=== PATIENT | female | born 1990 | race African-American/Black ===

== ENCOUNTER 2021-03-08 14:33 | Emergency (ER) | payer OTHER ==
[~2021-03-08] VITALS: Ht 162.6 cm; Wt 65.0 kg
[2021-03-08 16:33] VITALS: BP 114/74
--- NOTE | 2021-03-08 17:07 | RAD ---
THREE VIEWS RIGHT FINGER Clinical History: Reason: pink finger flexion trigger finger? Technique: AP view of the hand, as well as lateral and oblique collimated views of the little finger were obtained. Comparison: None. Findings: There is no acute fracture or dislocation. The mineralization is normal. The joint spaces are maintai wendy. There is no radiopaque foreign body. The soft tissues are normal. IMPRESSION: No acute fracture. Electronically signed by: Justen Clemente MD (03/08/2021 5:05 PM) [facility]
--- NOTE | 2021-03-08 17:13 | PHYS DOC ---
Past Medical History Past Surgical History: No Surgical History General Adult EDM: Chief Complaint: FINGER INJURY HPI: HPI: Patient is a 30 year old female who presents to the ED today complaining of her right little finger getting stuck in flexed position at the DIP joint intermittently. Patient states this has been going on for "a while". Patient states she does not know if she injured it or not. Denies any pain. Patient denies any pain. Review of Systems: Review of Systems: Constitutional: Denies fever or chills. [][] Musculoskeletal: Reports right pinky finger getting stuck in flexed position Integument: Denies rash. [] Neurologic: Denies headache, focal weakness or sensory changes. [] Psychiatric: Denies depression or anxiety. [] Heart Score: C/O Chest Pain: N/A Risk Factors: Risk Factors: DM, Current or recent (<one month) smoker, HTN, HLP, family history of CAD, obesity. Risk Scores: Score 0 - 3: 2.5% MACE over next 6 weeks - Discharge Home Score 4 - 6: 20.3% MACE over next 6 weeks - Admit for Clinical Observation Score 7 - 10: 72.7% MACE over next 6 weeks - Early Invasive Strategies Allergies: Allergies: Allergies Coded Allergies Type Severity Reaction Last Updated Verified No Known Drug Allergies 03/08/21 No Physical Exam: PE: Constitutional: Well developed, well nourished, no acute distress, non-toxic appearance. [] Extremities: Trigger finger noted to the right pinky finger DIP joint. Full range of motion of to the right pinky finger. Adequate radial, medial, ulnar sensation to the right fingers. +2 right radial pulse. Cap refill less than 2 seconds to right pinky finger. Neurologic: Alert and oriented X 3, normal motor function, normal sensory function, no focal deficits noted. [] Psychologic: Affect normal, judgement normal, mood normal. [] Current Patient Data: Vital Signs: Vital Signs Date Time Temp Pulse Resp B/P (MAP) Pulse Ox O2 Delivery O2 Flow Rate FiO2 03/08/21 16:33 98.9 16 114/74 (87) 98 98.9 EKG: EKG: [] Radiology/Procedures: Radiology/Procedures: []PROCEDURE: FINGER(S) RIGHT THREE VIEWS RIGHT FINGER Clinical History: Reason: pink finger flexion trigger finger? Technique: AP view of the hand, as well as lateral and oblique collimated views of the little finger were obtained. Comparison: None. Findings: There is no acute fracture or dislocation. The mineralization is normal. The joint spaces are maintained. There is no radiopaque foreign body. The soft tissues are normal. IMPRESSION: No acute fracture. Electronically signed by: Justen Wong MD (03/08/2021 5:05 PM) [facility] DICTATED and SIGNED BY: JUSTEN WONG MD DATE: 03/08/21 [id number] 0 Course & Med Decision Making: Course & Med Decision Making Pertinent Labs and Imaging studies reviewed. (See chart for details) This is a 30-year-old female patient presenting to the ED today with complaints of the right pinky finger being stuck in flexed position. No injuries. Physical exam is consistent with a trigger finger that is reducible. Right pinky finger x-rays are negative for any acute findings. Patient was placed in a finger splint by me. Neurovascular exam is intact. Provided Ortho for follow-up. Dragon Disclaimer: Dragbarrett Disclaimer: This electronic medical record was generated, in whole or in part, using a voice recognition dictation system. Departure Departure Impression: Primary Impression: Trigger finger, right little finger Disposition: HOME / SELF CARE / HOMELESS Condition: STABLE Referrals: NO PCP (PCP) LINDA GREGORY MD follow up in 1 week Patient Instructions: Trigger Finger, Trigger Point Therapy-Brief Additional Instructions: You were evaluated in the emergency room, you have trigger finger to the right pinky finger. Wear the splint provided as tolerated as needed. Follow-up with the provided orthopedic doctor. UBALDO VALDEZ [employer] TECH[employer]ICIAN Mar 08, 2021 17:13
== END 2021-03-08 17:30 | disposition home or self-care (01) ==
LOC: ER 14:33
DX: M65.351 Trigger finger, right little finger (principal)
CPT/HCPCS: 29130; 73140; 99283

== ENCOUNTER 2021-03-18 20:01 | Emergency (ER) | payer OTHER | END 2021-03-18 20:54 | disposition left against medical advice (07) | LOC: ER 20:01 | DX: R10.9 Unspecified abdominal pain (principal); R11.10 Vomiting, unspecified; Z53.21 Procedure and treatment not carried out due to patient leaving prior to being seen by health care provider ==